=== PATIENT | female | born 1955 | race Two or more races ===

== ENCOUNTER → 2017-09-04 | Outpatient (CLI) | LOC: GIMAGING 17:11 | PROVIDERS: ATTEND Internal Medicine | DX: M79.642 Pain in left hand (principal); M79.89 Other specified soft tissue disorders; E11.9 Type 2 diabetes mellitus without complications | CPT/HCPCS: 73130-PO ==

== ENCOUNTER 2017-12-07 05:39 | Day surgery (SDC) | payer OTHER ==
--- NOTE | 2017-12-04 16:25 | GHP ---
[f rep st] PREOP HISTORY AND PHYSICAL DATE OF ADMISSION: 12/07/2017 HISTORY OF PRESENT ILLNESS: The patient is a 62-year-old primarily Hebrew-speaking female, who pres ents with her daughter to discuss AVS creation. She has been on hemodialysis via a neck catheter sin ce May of 2017. She says her renal failure is secondary to diabetes. She does use insulin. Sh sebastian is right-hand dominant. Of note, Tana had a 3-vessel CABG about 2 years ago in [place]. She is on Plavix and followed by on license of [facility] stencil cutter machine there, Dr. Celeste, she says. 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 She uses oxygen at night. She has been told to use it during the day, but she says she feels fine without it. PAST MEDICAL HISTORY: Anemia of chronic disease; chronic kidney disease; coronary artery disease; di abetes mellitus, out of control; hyperlipidemia; hypothyroidism. PAST SURGICAL HISTORY: Right below-knee amputation. MEDICATION LIST: Amlodipine, aspirin, calcitriol, carvedilol, Plavix, furosemide, gabapentin, Humalo g U-100 insulin, iron, Levemir U-100, levothyroxine, pantoprazole, prednisone, simvastatin, vitamin D 3. ALLERGIES: Morphine. FAMILY MEDICAL HISTORY: Noncontributory. SOCIAL HISTORY: She is a never smoker. She does not drink alcohol. REVIEW OF SYSTEMS: A 10-point review of systems was performed and is negative except for what is in HPI. PHYSICAL EXAM: GENERAL: This is a well-appearing, well-dressed female in no acute distress. HEENT: Normocephalic. Pupils equal and round. No gross hearing deficit. Mucous membranes are moist. PS YCHIATRIC: Appropriate mood and affect. NEUROLOGIC: Alert and oriented. CARDIAC: Regular rate an d rhythm. No murmurs, clicks, or rubs. CHEST: Clear to auscultation bilaterally. No crackles, ral es, or rhonchi. ABDOMEN: Obese habitus, soft, nondistended, nontender. SKIN: Warm and dry. No ra shes or jaundice. MUSCULOSKELETAL: Moves all extremities equally. Palpable radial pulses bilateral ly. IMPRESSION AND PLAN: This is a 62-year-old female in end-stage renal disease with history of diabete s who is having planned surgery to create a left upper extremity arteriovenous fistula. All options and risks were discussed with patient. Risks include but are not limited to infection, bleeding, dam age to surrounding structure, need for further surgery, heart attack, and . Patient agrees to quentin godinez and wishes to move forward. /[id number]/MODL
[2017-12-07] MEDS ORDERED: LIDOCAINE 1% 2 ML INJ ID PRN (06:09)
[2017-12-07] MEDS ORDERED: LR 1,000 ML IV ONE (06:09)
[2017-12-07] MEDS ORDERED: NS 1,000 ML IV ONE (06:12)
[2017-12-07] MEDS ORDERED: THROMBIN (BOVINE) 20,000 UNIT SPRAY TP ONE (06:58)
[2017-12-07] MEDS ORDERED: BUPIVACAINE 0.25% 30 ML SDV ONE (06:58)
[2017-12-07] MEDS ORDERED: THROMBIN (BOVINE) 5,000 UNIT VIAL TP ONE (06:58)
[2017-12-07] MEDS ORDERED: PROTAMINE SULFATE 50 MG/5 ML VIAL IVP ONE (06:58)
[2017-12-07] MEDS ORDERED: PAPAVERINE HCL 60 MG/2 ML SDV ONE (07:00)
--- NOTE | 2017-12-07 07:09 | PDANEPAE ---
ANE Past Medical History - Cardiovascular History Hx Hypertension: Yes Hx Arrhythmias: Yes Hx Chest Pain: No Hx Coronary Artery / Peripheral Vascular Disease: Yes Hx CHF / Valvular Disease: Yes Hx Palpitations: No Cardiovascular History Comment: cad. hx of cabg 3v 09/2015. hyperlipidemia. chf. pvd. ischemic cardiomyopathy. peripheral edema - Pulmonary History Hx COPD: No Hx Asthma/Reactive Airway Disease: No Hx Recent Upper Respiratory Infection: No Hx Oxygen in Use at Home: No Hx Sleep Apnea: No Sleep Apnea Screening Result - Last Documented: Positive Pulmonary History Comment: carlota triggers - Neurologic History Neurologic History Comment: peripheral neuropathy - Endocrine History Hx Diabetes: Yes Endocrine History Comment: type 2. hypothyroidism. 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 CABG 3v 09/2015. right vitrectomy 07/2012. hysterectomy ANE Review of Systems Review of Systems: ANE Patient History - Allergies Allergies/Adverse Reactions: morphine Allergy (Verified 12/04/17 15:16) nausea/ vomitting - Home Medications Home Medications: Amlodipine Besylate 12/04/17 [Last Taken 11/30/17] Aspirin 81mg (*) 12/04/17 [Last Taken 11/30/17] Calcitriol 12/04/17 [Last Taken Unknown] Carvedilol 12/04/17 [Last Taken 11/30/17] Clopidogrel 12/04/17 [Last Taken 11/30/17] Furosemide 12/04/17 [Last Taken 12/06/17] Gabapentin 12/04/17 [Last Taken 12/06/17] Humalog 12/04/17 [Last Taken 12/06/17] Iron 12/04/17 [Last Taken Unknown] Levemir 12/04/17 [Last Taken 12/07/17] Levothyroxine 12/04/17 [Last Taken 12/06/17] Pantoprazole Sodium 12/04/17 [Last Taken 12/06/17] SIMVASTATIN 12/04/17 [Last Taken 12/06/17] Vitamin D3 12/04/17 [Last Taken Unknown] - NPO status NPO Since - Liquids (Date): 12/06/17 NPO Since - Liquids (Time): 23:00 NPO Since - Solids (Date): 12/06/17 NPO Since - Solids (Time): 23:00 - Smoking Hx Smoking Status: Former smoker ANE Labs/Vital Signs - Vital Signs Blood Pressure: 179/72 Heart Rate: 77 Respiratory Rate: 16 O2 Sat (%): 91 Height: 152 cm Weight: 85.4 kg ANE Physical Exam - Airway Neck exam: FROM Mallampati Score: Class 3 Mouth exam: dentures - Pulmonary Pulmonary: no respiratory distress - Cardiovascular Cardiovascular: regular rate and rhythym - ASA Status ASA Status: III ANE Anesthesia Plan Anesthesia Plan: GA w LMA
[2017-12-07] MEDS ORDERED: PROPOFOL 200 MG/20 ML VIAL ONE (07:11)
[2017-12-07] MEDS ORDERED: fentaNYL 100 MCG/2 ML INJ ONE ×2 (07:11→10:00)
[2017-12-07] MEDS ORDERED: RANITIDINE 50 MG/2 ML VIAL ONE (07:12)
[2017-12-07] MEDS ORDERED: LIDOCAINE 2% 100 MG/5 ML SYR ONE (07:12)
[2017-12-07] MEDS ORDERED: METOCLOPRAMIDE 10 MG/2 ML VIAL ONE (07:12)
[2017-12-07 07:14] LABS: PLATELET COUNT 205 10^3/uL (150-400)
--- NOTE | 2017-12-07 07:15 | PDHPUP ---
History & Physical Update H&P update statement: This history and physical update is based on an assessment of the patient which was completed after admission or registration (within 24 hours), but prior to the surgery/procedure. H&P update: H&P reviewed & patient examined, no change in patient's condition since H&P completed
[2017-12-07] MEDS ORDERED: PHENYLEPHRINE HCL 100 MCG/ML SYR ONE (07:52)
[2017-12-07] MEDS ORDERED: HEPARIN 10,000 UNIT/10 ML MDV (1,000 UNIT/ML) ONE (08:19)
[2017-12-07] MEDS ORDERED: ONDANSETRON 4 MG/2 ML VIAL IVP PRN (09:03)
[2017-12-07] MEDS ORDERED: ALBUTEROL 3 ML DEYVIAL IH PRN (09:03)
[2017-12-07] MEDS ORDERED: NALOXONE HCL 0.4 MG/ML INJ IVP PRN (09:03)
--- NOTE | 2017-12-07 09:04 | POSTANESTH ---
Post Anesthetic Evaluation Cardiovascular Status: Similar to Pre-Op Cond Respiratory Status: Similar to Pre-op Cond. Level of Consciousness/Mental Status: Mildly Sleepy, Arousable Pain Control: Adequate, Prn Tx Ordered Nausea/Vomiting Control: Adequate, Prn Tx Ordered Complications Possibly Related to Anesthesia: None Noted
[2017-12-07] MEDS: fentaNYL 100 MCG/2 ML INJ IVP PRN ×2 (10:02→10:12)
--- NOTE | 2017-12-07 10:20 | POSTOPPROG ---
Post Op Note Date of Operation: 12/07/17 Surgeon: Lacho Bassett Fisher Lobster: Julee Hale Anesthesiologist: Aaron Castorena Anesthesia: GET(General Endotracheal) Pre-op Diagnosis: CRF on HD, DM Post-op Diagnosis: same Procedure: LUE brachiobasilic AVF Findings: small vein, but distended well. good thrill. Inf/Abcess present in the surg proc area at time of surgery?: No EBL: Minimal Complications: none Specimen(s): none
[2017-12-07] MEDS ORDERED: HYDROCODONE/APAP 5/325 TAB ONE (11:10)
[2017-12-07] MEDS ORDERED: HYDROCODONE/APAP 5/325 TAB PO ONE (11:30)
[2017-12-07 13:30] VITALS: BP 133/65
--- NOTE | 2017-12-12 20:21 | GOP ---
[f rep st] OPERATIVE REPORT DATE OF OPERATION: 12/07/2017 SURGEON: Lacho Bassett MD HOME ECONOMIST CONSUMER SERVICE: Alicia Maynard, Nurse Practitioner. PREOPERATIVE DIAGNOSIS: Chronic renal failure. POSTOPERATIVE DIAGNOSIS: Chronic renal failure. PROCEDURE PERFORMED: 1. Left arm ultrasound vein mapping. 2. Left brachiobasilic transposition arteriovenous fistula. FINDINGS: The patient was found to have inadequate vein at the wrist, as well as the cephalic vein i n the upper arm appeared to stop abruptly in the mid upper arm. The only adequate vein in the left s arnav was the upper arm basilic vein. DESCRIPTION OF PROCEDURE: A curvilinear incision was made in the antecubital space. Dissection exte nded down through subcutaneous tissue and through the biceps aponeurosis, and the brachial artery was dissected free and controlled with vessel loops. The basilic vein was then traced along its course down to the antecubital space. It was elevated up. Multiple branches were ligated and divided, and the vein was brought up to the surface, dissected past the antecubital space, where it was then ligat ed distally and transected, and the vein was brought up to the brachial artery. The vein was tested with heparin saline injection, and appeared to be an adequate conduit. The patient had been systemic ally heparinized prior to this. The brachial artery was then occluded. Arteriotomy was made. An en d-to-side anastomosis was made to the basilic vein, creating an 8 mm AV fistula anastomosis. This wa s done with 6-0 Prolene. Flow was first established through the AV fistula then back down the hand. She maintained a good radial pulse as well as good thrill in the basilic vein. Heparin was reversed with protamine. The wound was sprayed with some topical thrombin, and closed with 3-0 Vicryl for th e subcutaneous tissue and a 4-0 Monocryl subcuticular stitch for the skin. Basilic vein will likely need to be further transposed in the future after it has adequate time to develop as her arms are marcos te fluffy. She tolerated the procedure well, taken to recovery room in good condition. No complicat ions. /[id number]/MODL
== END 2017-12-07 13:07 | disposition home or self-care (01) ==
LOC: FSGY 05:39
PROVIDERS: ATTEND Surgery
PROC: 03180ZD Bypass Left Brachial Artery to Upper Arm Vein, Open Approach (ICD-10-PCS; principal; 2017-12-07 07:15)
DX: N18.6 End stage renal disease (principal); E11.22 Type 2 diabetes mellitus with diabetic chronic kidney disease; Z79.4 Long term (current) use of insulin; I25.10 Atherosclerotic heart disease of native coronary artery without angina pectoris; Z95.5 Presence of coronary angioplasty implant and graft; E78.5 Hyperlipidemia, unspecified; E03.9 Hypothyroidism, unspecified
CPT/HCPCS: J1644; J2001; J2370; J2440; J2704; J2720; J2765; J2780; J3010

== ENCOUNTER 2018-04-30 06:23 | Day surgery (SDC) | payer OTHER, MEDICAID ==
--- NOTE | 2018-04-30 06:30 | POSTANESTH ---
Post Anesthetic Evaluation Cardiovascular Status: Normal, Stable Respiratory Status: Normal, Stable Level of Consciousness/Mental Status: Can Participate in Eval, Mildly Sleepy, Arousable Pain Control: Adequate, Prn Tx Ordered Nausea/Vomiting Control: Adequate, Prn Tx Ordered Complications Possibly Related to Anesthesia: None Noted
--- NOTE | 2018-04-30 06:33 | PDANEPAE ---
ANE History of Present Illness 62 yo female with multiple comorbidities for AV fistula. ANE Past Medical History - Cardiovascular History Hx Hypertension: Yes Hx Arrhythmias: No Hx Chest Pain: No Hx Coronary Artery / Peripheral Vascular Disease: Yes Hx CHF / Valvular Disease: Yes Hx Palpitations: No Cardiovascular History Comment: cad. hx of cabg 3v 09/2015. hyperlipidemia. chf. pvd. ischemic cardiomyopathy. peripheral edema. followed by [facility] - Pulmonary History Hx COPD: No Hx Asthma/Reactive Airway Disease: No Hx Recent Upper Respiratory Infection: No Hx Oxygen in Use at Home: No Hx Sleep Apnea: No Sleep Apnea Screening Result - Last Documented: Positive Pulmonary History Comment: carlota triggers - Neurologic History Hx Cerebrovascular Accident: No Hx Seizures: No Hx Dementia: No Neurologic History Comment: peripheral neuropathy - Endocrine History Hx Diabetes: Yes Hypothyroid: Yes Hyperthyroid: No Obesity: moderate Endocrine History Comment: type 2 DM on insulin. - Renal History Hx Renal Disorders: Yes Renal History Comment: ESRD - Liver History Hx Hepatic Disorders: No - Neurological & Psychiatric Hx Hx Neurological and Psychiatric Disorders: Yes Neurological / Psychiatric History Comment: neuropathy - Cancer History Hx Cancer: No - Congenital Disorder History Hx Congenital Disorders: No - GI History Hx Gastrointestinal Disorders: Yes Gastrointestinal History Comment: reflux. 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 full dentures. chronic anemia - Chronic Pain History Chronic Pain: No - Surgical History Prior Surgeries: 12/07/17 left AV Fistula with Bassett. right BKA d/t rle gangrene 09/2009. CABG 3v 09/2015. right vitrectomy 07/2012. hysterectomy ANE Review of Systems Review of Systems: - Exercise capacity METS (RN): 3 METS - Systems Constitutional: Reports: no symptoms Cardiac: Reports: no symptoms Respiratory: Reports: no symptoms ANE Patient History - Allergies Allergies/Adverse Reactions: morphine Allergy (Verified 04/29/18 16:44) nausea/ vomitting - Home Medications Home Medications: Amlodipine Besylate 12/04/17 [Last Taken 04/27/18] Aspirin 81mg (*) 12/04/17 [Last Taken 04/25/18] Calcitriol 12/04/17 [Last Taken 04/29/18 09:00] Carvedilol 12/04/17 [Last Taken 04/29/18 21:30] Clopidogrel 12/04/17 [Last Taken 04/25/18] Furosemide 12/04/17 [Last Taken 04/29/18 21:30] Gabapentin 12/04/17 [Last Taken 04/29/18 21:30] Humalog 12/04/17 [Last Taken 04/27/18] Iron 12/04/17 [Last Taken 04/29/18 09:00] Levemir 12/04/17 [Last Taken 04/30/18 05:30] Levothyroxine 12/04/17 [Last Taken 04/29/18 09:00] Pantoprazole Sodium 12/04/17 [Last Taken 04/29/18 09:00] SIMVASTATIN 12/04/17 [Last Taken 04/29/18 22:00] Vitamin D3 12/04/17 [Last Taken 04/29/18 09:00] - NPO status NPO Status: no food or drink >8 hours - Anes Hx Anes Hx: no prior problems - Smoking Hx Smoking Status: Former smoker - Family Anes Hx Family Anes Hx: neg - N/A Family Hx Anesthesia Complications: none ANE Labs/Vital Signs - Vital Signs Vital Signs: reviewed preoperatively; see RN documention for details Height: 152 cm Weight: 86 kg ANE Physical Exam - Airway Neck exam: increased neck circumference, short neck Mallampati Score: Class 2 Mouth exam: dentures - Pulmonary Pulmonary: clear to auscultation - Cardiovascular Cardiovascular: regular rate and rhythym - ASA Status ASA Status: IV ANE Anesthesia Plan Anesthesia Plan: GA w LMA
[2018-04-30] MEDS ORDERED: ceFAZolin 2 GM/DEXTROSE 100 ML IV ONE (06:53)
[2018-04-30] MEDS ORDERED: LIDOCAINE 1% 2 ML INJ ID PRN (06:54)
[2018-04-30] MEDS ORDERED: NS 1,000 ML IV ONE (06:54)
[2018-04-30] MEDS ORDERED: BUPIVACAINE 0.5% 30 ML SDV ONE (07:34)
[2018-04-30] MEDS ORDERED: PROTAMINE SULFATE 50 MG/5 ML VIAL IVP ONE (07:34)
[2018-04-30] MEDS ORDERED: THROMBIN (BOVINE) 5,000 UNIT VIAL TP ONE (07:34)
[2018-04-30] MEDS ORDERED: PAPAVERINE HCL 60 MG/2 ML SDV ONE (07:34)
[2018-04-30] MEDS ORDERED: INSULIN REGULAR HUMAN 100 UNIT/ML UNIT ONE (07:50)
[2018-04-30] MEDS ORDERED: INSULIN LISPRO 100 UNIT/ML SC ONE (07:52)
[2018-04-30] MEDS ORDERED: PROPOFOL/EMULSION 500 MG/50 ML BOTTLE IV ONE (08:01)
[2018-04-30] MEDS ORDERED: METOCLOPRAMIDE 10 MG/2 ML VIAL ONE (08:01)
[2018-04-30] MEDS ORDERED: LIDOCAINE 2% 2 ML INJ ONE (08:01)
[2018-04-30] MEDS ORDERED: fentaNYL 100 MCG/2 ML INJ ONE (08:01)
[2018-04-30] MEDS ORDERED: RANITIDINE 50 MG/2 ML VIAL ONE (08:01)
[2018-04-30 08:07] LABS: PLATELET COUNT 192 10^3/uL (150-400)
[2018-04-30] MEDS ORDERED: ONDANSETRON 4 MG/2 ML VIAL ONE (08:08)
[2018-04-30] MEDS ORDERED: PHENYLEPHRINE HCL 100 MCG/ML SYR ONE (08:48)
[2018-04-30] MEDS ORDERED: THROMBIN (BOVINE) 20,000 UNIT SPRAY TP ONE (09:22)
[2018-04-30] MEDS ORDERED: VASOPRESSIN 20 UNIT/ML VIAL ONE (09:23)
[2018-04-30] MEDS ORDERED: NALOXONE HCL 0.4 MG/ML INJ IVP PRN (09:35)
[2018-04-30] MEDS ORDERED: HYDROCODONE/APAP 5/325 TAB PO PRN (09:35)
[2018-04-30] MEDS ORDERED: LABETALOL HCL 5 MG/ML 20 ML MDV IVP PRN (09:35)
[2018-04-30] MEDS ORDERED: ACETAMINOPHEN 500 MG TAB PO PRN (09:35)
[2018-04-30] MEDS ORDERED: ONDANSETRON 4 MG/2 ML VIAL IVP PRN (09:35)
[2018-04-30] MEDS ORDERED: fentaNYL 100 MCG/2 ML INJ IVP PRN (09:35)
[2018-04-30 11:45] VITALS: BP 133/77
--- NOTE | 2018-04-30 11:59 | POSTOPPROG ---
Post Op Note Date of Operation: 04/30/18 Surgeon: Lacho Bassett Sales Order Processor: Caesar Anesthesiologist: Mccoy Anesthesia: IV Sedation, Local (Specify) Pre-op Diagnosis: ESRD Post-op Diagnosis: same Indication: inability to access AVF for dialysis Procedure: LUE AVF transposition Findings: Small AVF, +thrill Inf/Abcess present in the surg proc area at time of surgery?: No Depth: Superfical (Skin SQ) EBL: Minimal Drains: Marcial Gonzalez
[2018-04-30] MEDS ORDERED: oxyCODONE IR 5 MG TAB ONE (12:04)
[2018-04-30] MEDS ORDERED: HYDROCODONE/APAP 5/325 TAB ONE (12:07)
--- NOTE | 2018-05-02 15:42 | GOP ---
DATE OF OPERATION: 04/30/2018 SURGEON: Lacho Bassett MD VP & GENERAL COUNSEL: Alicia Maynard, nurse practitioner PREOPERATIVE DIAGNOSIS: Renal failure and difficulty with arteriovenous fistula access. POSTOPERATIVE DIAGNOSIS: Renal failure and difficulty with arteriovenous fistula access. PROCEDURE PERFORMED: Transposition of a left brachial basilic arteriovenous fistula. FINDINGS: Patient was found to have a good flowing adequate brachiobasilic AV fistula, but was deep in the arm. It was mobilized up to a more superficial and more anterior position. DESCRIPTION OF PROCEDURE: The patient was taken to the operating room where she received satisfactor y general endotracheal anesthesia, placed in supine position with the left arm outstretched on arm suleman katty, prepped and draped in the usual sterile fashion. Using ultrasound guidance, the AV fistula was mapped. A longitudinal incision was then made over the fistula and dissection extended down through a large amount of adiposity down to the fistula, itself . The fistula was dissected free from surrounding tissues and encircled with vessel loops, and multi ple branches were ligated and divided. This allowed full mobilization of the AV fistula from the ant ecubital space up nearly to the axilla, which gave us adequate mobility for transposing. Anterior sk in flap was then developed by dividing the subcutaneous tissue off the flap wall. The subcutaneous t issue was then approximated with interrupted 3-0 Vicryl sutures underneath the transposed vein. Wound was infiltrated with Marcaine. A 15 round silicone MAYTE drain was brought out through a separate stab incision and placed in the surgical bed below the subcutaneous closure. A second layer of subc u stitches were placed over the vein with care to avoid impeding the flow in the AV fistula, itself. Skin was then closed with skin lala. The wound had been infiltrated with 0.5% Marcaine. There w ere no complications. Blood loss negligible. She was taken to recovery room in good condition, with a good palpable, much more superficial brachiobasilic arteriovenous fistula. /[id number]/MODL
== END 2018-04-30 12:59 | disposition home or self-care (01) ==
LOC: FSGY 06:23
PROVIDERS: ATTEND Surgery
DX: T82.858A Stenosis of other vascular prosthetic devices, implants and grafts, initial encounter (principal); N18.6 End stage renal disease; Z99.2 Dependence on renal dialysis; E11.22 Type 2 diabetes mellitus with diabetic chronic kidney disease; D63.8 Anemia in other chronic diseases classified elsewhere; I25.5 Ischemic cardiomyopathy; I25.10 Atherosclerotic heart disease of native coronary artery without angina pectoris; E78.5 Hyperlipidemia, unspecified; E03.9 Hypothyroidism, unspecified; Z89.519 Acquired absence of unspecified leg below knee; Z95.1 Presence of aortocoronary bypass graft; I25.2 Old myocardial infarction
CPT/HCPCS: J0690; J1644; J1815; J2370; J2405; J2440; J2704; J2720; J2765; J2780; J3010